=== PATIENT | female | born 1980 | race African-American/Black ===

== ENCOUNTER 2024-02-05 11:42 | Emergency (ER) | payer MEDICAID ==
[~2024-02-05] VITALS: Ht 154.9 cm; Wt 59.1 kg
[2024-02-05 11:53] VITALS: TEMP 98.9
[2024-02-05 12:54] LABS: COVID AG,FIA SOURCE NASAL SWAB
[2024-02-05 13:44] LABS: INFLUENZA TYPE A NEGATIVE FOR TYPE A (NEGATIVE); INFLUENZA TYPE B NEGATIVE FOR TYPE B (NEGATIVE)
[2024-02-05 13:51] LABS: SARS-COV2 (COVID) ANTIGEN,FIA Negative (Negative)
[2024-02-05] MEDS ORDERED: AZIT250T9 PO (14:08)
[2024-02-05 14:27] VITALS: BP 99/69; PULSE 78; RESP 16; O2SAT 98
== END 2024-02-05 14:30 | disposition home or self-care (01) ==
LOC: EMS 11:44
DX: J98.4 Other disorders of lung (principal); Z90.710 Acquired absence of both cervix and uterus; Z20.822 Contact with and (suspected) exposure to COVID-19
CPT/HCPCS: 87804; 99283